=== PATIENT | female | born 1950 | race Caucasian/White ===

== ENCOUNTER 2016-12-18 18:42 | Emergency (ER) | payer MEDICARE, OTHER ==
[~2016-12-18] VITALS: Ht 167.6 cm; Wt 86.0 kg
[~2016-12-18 18:42] MED LIST: AZIT250T94 PO; BENZ100C70 PO; METF500T3; ZOCOR
[2016-12-18 18:47] VITALS: Ht 167.6 cm; Wt 86.0 kg
[2016-12-18] MEDS ORDERED: SOD CHLORIDE 0.9% 1,000 ML IV STA (20:02)
[2016-12-18] MEDS ORDERED: ONDANSETRON 4 MG INJ IV STA (20:02)
[2016-12-18] MEDS ORDERED: KETOROLAC 15 MG INJ IV STA (20:02)
[2016-12-18] MEDS ORDERED: BELLADONNA/PHENOBARBITAL TAB PO STA (20:02)
[2016-12-18 20:41] LABS: ADD UMIC YES; UR ASCORBIC ACID NEGATIVE (NEGATIVE); UR BACTERIA FEW /HPF (NONE SEEN); UR BILIRUBIN (Dip) NEGATIVE (NEGATIVE); UR BLOOD (Dip) 1+ mg/dL (NEGATIVE); UR CLARITY SLIGHTLY CLOUDY (CLEAR); UR COLOR YELLOW (YELLOW); UR GLUCOSE (Dip) 1+ mg/dL (NEGATIVE); UR KETONES (Dip) NEGATIVE (NEGATIVE); UR LEUKOCYTE ESTERASE (Dip) 3+ Leu/ul (NEGATIVE); UR MUCUS FEW /HPF (NONE SEEN); UR NITRITE (Dip) POSITIVE (NEGATIVE); UR RBC 6 /HPF (0-5); UR SPECIFIC GRAVITY (Dip) 1.018 (1.003-1.030); UR SQUAMOUS EPITHELIAL CELL FEW /HPF (FEW); UR TOTAL PROTEIN (Dip) NEGATIVE (NEGATIVE); UR UROBILINOGEN (Dip) NEGATIVE (NEGATIVE)
[2016-12-18] MEDS ORDERED: AMLO5TAB4 PO (20:54)
[2016-12-18] MEDS ORDERED: METF500T4 PO (20:54)
[2016-12-18] MEDS ORDERED: ASPI-664 PO (20:55)
--- NOTE | 2016-12-18 20:57 | ERD ---
ER Documentation Chief Complaint Chief Complaint right leg pain since 3 days ago, denies injury HPI 66-year-old woman here for abdominal pain, she was triaged his leg pain although denies pain in her leg and denies is here for leg pain. Her abdominal pain is epigastric and suprapubic, she has had dysuria 1 day, no fevers or chills, no blood per rectum or melena, no chest pain or shortness of breath. ROS All systems reviewed and are negative except as per history of present illness. Medications Home Meds Active Scripts Ondansetron Hcl* (Zofran*) 4 Mg Tablet, 4 MG PO Q8H Y for NAUSEA, #15 TAB Prov:EFREN NOGUERA MD 12/18/16 Cephalexin* (Keflex*) 500 Mg Capsule, 500 MG PO TID for 7 Days, CAP Prov:EFREN NOGUERA MD 12/18/16 Reported Medications Aspirin* (Aspirin* EC) 81 Mg Tablet.dr, 81 MG PO DAILY, TAB 12/18/16 Amlodipine Besylate* (Norvasc*) 5 Mg Tablet, 5 MG PO DAILY, TAB 12/18/16 Metformin Hcl* (Metformin Hcl*) 500 Mg Tablet, 500 MG PO WITH BREAKFAST DINNE, # 60 TAB 12/18/16 Discontinued Reported Medications Metformin* (Glucophage* XR) 500 Mg Tab.sr.24h 11/14/09 [Zocor] No Conflict Check 11/14/09 Discontinued Scripts Benzonatate* (Tessalon Perle*) 100 Mg Capsule, 100 MG PO TID, #30 CAP Prov:JOY MCADAMS MD 02/20/16 Azithromycin* (Zithromax*) 250 Mg Tablet, 250 MG PO DAILY for 4 Days, TAB Prov:JOY MCADAMS MD 02/20/16 Allergies Allergies: Coded Allergies: No Known Drug Allergy (Verified Allergy, Mild, 12/18/16) PMhx/Soc Hypertension, diabetes History of Surgery: Yes (CHOLECYSTECTOMY,HYSTRECTOMY) Anesthesia Reaction: No Hx Neurological Disorder: No Hx Respiratory Disorders: No Hx Cardiac Disorders: Yes (HIGH CHOLESTROL) Hx Psychiatric Problems: Yes Hx Miscellaneous Medical Probl: No Hx Alcohol Use: No Hx Substance Use: No Hx Tobacco Use: No Smoking Status: Never smoker FmHx Family History: No diabetes Physical Exam Vitals Vital Signs Date Time Temp Pulse Resp B/P Pulse Ox O2 Delivery O2 Flow Rate FiO2 12/18/16 22:34 74 18 135/82 100 Room Air 12/18/16 20:02 80 20 167/67 99 Room Air 12/18/16 18:47 98.3 83 20 180/78 96 Physical Exam GENERAL: Well-developed, well-nourished, well-hydrated, in no apparent distress , looks nontoxic in appearance HEENT: Moist mucous membranes, pink conjunctiva, no cervical spine tenderness or step-off deformities, no goiter, no jaundice or icterus, extraocular movements intact without pain. No submandibular induration, and no pharyngeal erythema NEURO: Alert and oriented 3, cranial nerves II through XII intact bilaterally, pupils equal round reactive to light, no focal deficits or facial asymmetry, sensation intact distally Strength 5/5 in upper and lower extremities bilaterally CARDIAC: Regular rate and rhythm, no murmurs rubs or gallops LUNGS: Clear bilaterally no wheezing crackles or stridor ABDOMEN: Soft nontender, no guarding, no rigidity, no rebound, no psoas sign no obturator sign. Normoactive bowel sounds SKIN: Warm and dry to touch, no abrasions, contusions, or hematomas, no lacerations, no ecchymosis, no target lesions, and without ulcers EXTREMITIES: No clubbing cyanosis or edema, calves are bilaterally symmetrical, no Homans sign, no popliteal cord sign. Distal pulses equal and bilateral PSYCH: Normal affect without agitation or irritability Result Diagram: 12/18/16204712/18/162047 Results 24 hrs Laboratory Tests Test 12/18/16 20:12 12/18/16 20:48 Urine Color YELLOW Urine Clarity SLIGHTLY CLOUDY Urine pH 6.0 Urine Specific [place] 1.018 Urine Ketones NEGATIVEmg/dL Urine Nitrite POSITIVEmg/dL Urine Bilirubin NEGATIVEmg/dL Urine Urobilinogen NEGATIVEmg/dL Urine Leukocyte Esterase 3+Lynda/ul Urine Microscopic RBC 6/HPF Urine Microscopic WBC 64/HPF Urine Squamous Epithelial Cells FEW/HPF Urine Bacteria FEW/HPF Urine Mucus FEW/HPF Urine Hemoglobin 1+mg/dL Urine Glucose 1+mg/dL Urine Total Protein NEGATIVEmg/dl White Blood Count 12.510^3/ul Red Blood Count 4.3610^6/ul Hemoglobin 11.8g/dl Hematocrit 37.6% Mean Corpuscular Volume 86.2fl Mean Corpuscular Hemoglobin 27.1pg Mean Corpuscular Hemoglobin Concent 31.4g/dl Red Cell Distribution Width 14.1% Platelet Count 69129^3/UL Mean Platelet Volume 10.9fl Neutrophils % 67.1% Lymphocytes % 23.1% Monocytes % 6.6% Eosinophils % 2.5% Basophils % 0.3% Nucleated Red Blood Cells % 0.0/100WBC Neutrophils # 8.410^3/ul Lymphocytes # 2.910^3/ul Monocytes # 0.810^3/ul Eosinophils # 0.310^3/ul Basophils # 0.010^3/ul Nucleated Red Blood Cells # 0.010^3/ul Sodium Level 143mmol/L Potassium Level 4.1mmol/L Chloride Level 104mmol/L Carbon Dioxide Level 29mmol/L Anion Gap 14 Blood Urea Nitrogen 18mg/dl Creatinine 0.67mg/dl Glucose Level 188mg/dl Calcium Level 9.4mg/dl Total Bilirubin 0.1mg/dl Direct Bilirubin 0.00mg/dl Indirect Bilirubin 0.1mg/dl Aspartate Amino Transf (AST/SGOT) 19IU/L Alanine Aminotransferase (ALT/SGPT) 31IU/L Alkaline Phosphatase 67IU/L Troponin I < 0.012ng/ml Total Protein 8.1g/dl Albumin 3.9g/dl Globulin 4.20g/dl Albumin/Globulin Ratio 0.92 Lipase 119U/L Current Medications Medications (Trade) Dose Ordered Sig/Titus Route PRN Reason Start Time Stop Time Status Last Admin Dose Admin Sodium Chloride (NS) 1,000 ml @ 1,000 mls/hr Q1H STAT IV 12/18/16 20:02 12/18/16 21:01 DC 12/18/16 21:14 Ondansetron HCl (Zofran Inj) 4 mg ONCE STAT IV 12/18/16 20:02 12/18/16 20:04 DC Miscellaneous Medication (Gi Cocktail (2)) 40 ml ONCE STAT PO 12/18/16 20:02 12/18/16 20:04 DC Belladonna/ Phenobarbital () 2 tab ONCE STAT PO 12/18/16 20:02 12/18/16 20:04 DC 12/18/16 21:14 Ketorolac Tromethamine 15 mg 15 mg ONCE STAT IV 12/18/16 20:02 12/18/16 20:04 DC 12/18/16 21:14 Ceftriaxone Sodium (Rocephin) 50 ml @ 100 mls/hr ONCE ONCE IVPB 12/18/16 21:30 12/18/16 21:59 DC 12/18/16 21:44 Procedures/MDM IV line was established patient was placed on monitoring analyst rhythm strip revealed a sinus rhythm at about 80 bpm with upright P and T waves. Patient was afebrile EKG performed, read by me: 82 bpm, normal sinus rhythm, normal axis, no acute ST segment changes, narrow QRS complex, with good R-wave progression in precordial leads. I ordered 1 L normal saline intravenously, Zofran 4 mg IV, GI cocktail 30 cc p.o., and Toradol 15 mg IV. CBC and electrolytes are normal, liver function tests were normal, troponin was negative. Urinalysis was consistent with early UTI I treated her here with ceftriaxone [address] scan of the abdomen and pelvis was performed, given the patient's symptoms. There was no acute inflammatory or infectious pathology noted, vascular structures were unremarkable. Please refer radiologist's dictation for full report. Differential diagnoses considered, included but not limited to acute coronary syndrome, pulmonary embolism, aortic dissection, abdominal aortic aneurysm, sepsis, stroke, meningitis, encephalitis, pneumonia, appendicitis, cholecystitis , bowel obstruction, pyelonephritis, nephrolithiasis, cystitis, as well as metabolic, hematologic, and electrolyte abnormalities. As well as abscess, cellulitis, fractures, and dislocations. Patient feels much better at this time, and vital signs are normal, symptoms have improved. I did give strict instructions to return to the ED if symptoms continue or worsen, patient will otherwise follow-up with primary care physician. Patient understood instructions and agreed to plan. Disclaimer: Inadvertent spelling and grammatical errors are likely due to EHR/ dictation software use and do not reflect on the overall quality of patient care. Also, please note that the electronic time recorded on this note does not necessarily reflect the actual time of the patient encounter. Departure Diagnosis: Primary Impression: Abdominal pain Abdominal location: epigastric Qualified Code: R10.13 - Epigastric pain Additional Impression: UTI (urinary tract infection) Urinary tract infection type: acute cystitis Hematuria presence: without hematuria Qualified Code: N30.00 - Acute cystitis without hematuria Condition: EFREN Casiano MD Dec 18, 2016 20:57
[2016-12-18 21:05] LABS: BASOPHILS % 0.3 % (0.0-2.0); EOSINOPHILS # 0.3 10^3/ul (0.0-0.5); EOSINOPHILS % 2.5 % (0.0-7.0); HEMATOCRIT 37.6 % (37.0-47.0); HEMOGLOBIN 11.8 g/dl (12.0-16.0); LYMPHOCYTES # 2.9 10^3/ul (0.8-2.9); LYMPHOCYTES % 23.1 % (15.0-51.0); MEAN CORPUSCULAR HEMOGLOBIN 27.1 pg (29.0-33.0); MEAN CORPUSCULAR HGB CONC 31.4 g/dl (32.0-37.0); MEAN CORPUSCULAR VOLUME 86.2 fl (82.0-101.0); MEAN PLATELET VOLUME 10.9 fl (7.4-10.4); MONOCYTE # 0.8 10^3/ul (0.3-0.9); MONOCYTES % 6.6 % (0.0-11.0); NEUTROPHIL # 8.4 10^3/ul (1.6-7.5); NEUTROPHILS % 67.1 % (39.0-77.0); PLATELET COUNT 287 10^3/UL (140-415); RED BLOOD COUNT 4.36 10^6/ul (4.20-5.40); RED CELL DISTRIBUTION WIDTH 14.1 % (11.5-14.5); WHITE BLOOD COUNT 12.5 10^3/ul (4.8-10.8)
[2016-12-18] MEDS: LIDOCAINE/MYLANTA 40 ML BTL PO STA ×2 (21:14→21:19)
[2016-12-18] MEDS ORDERED: ONDA4TAB8 PO (21:17)
[2016-12-18] MEDS ORDERED: CEPH-443 PO (21:17)
[2016-12-18 21:23] LABS: ALANINE AMINOTRANSFERASE 31 IU/L (13-69); ALBUMIN 3.9 g/dl (3.3-4.9); ALBUMIN/GLOBULIN RATIO 0.92; ALKALINE PHOSPHATASE 67 IU/L (42-121); ANION GAP 14 (8-16); ASPARTATE AMINO TRANSFERASE 19 IU/L (15-46); BILIRUBIN,INDIRECT 0.1 mg/dl (0-1.1); BILIRUBIN,TOTAL 0.1 mg/dl (0.2-1.3); BLOOD UREA NITROGEN 18 mg/dl (7-20); CALCIUM 9.4 mg/dl (8.4-10.2); CARBON DIOXIDE 29 mmol/L (21-31); CHLORIDE 104 mmol/L (97-110); CREATININE 0.67 mg/dl (0.44-1.00); GLUCOSE 188 mg/dl (70-220); POTASSIUM 4.1 mmol/L (3.5-5.1); SODIUM 143 mmol/L (135-144); TOTAL PROTEIN 8.1 g/dl (6.1-8.1)
[2016-12-18] MEDS ORDERED: CEFTRIAXONE 1 GM/50 ML (PMX) 50 ML IVPB ONE (21:30)
[2016-12-18 21:34] LABS: TROPONIN-I < 0.012 ng/ml (0.00-0.12)
--- NOTE | 2016-12-18 21:43 | RADRPT ---
PROCEDURE: CT ABDOMEN AND PELVIS WITHOUT CONTRAST. CLINICAL INDICATION: Abdominal pain TECHNIQUE: CT scan of the abdomen and pelvis without contrast was performed on a multidetector hig h-resolution CT scanner. The patient was scanned without intravenous contrast. Coronal and sagittal reformatted images were obtained from the axial source images. Images were reviewed on a high-resol [employer] PACS workstation. The total exam CTDI equals 18.3 mGy and the total exam DLP equals 993.4 mGy- cm. One or more of the following dose reduction techniques were used: Automated exposure control. Adjustment of the mA and/or kV according to patient size. Use of iterative reconstruction technique. COMPARISON: None FINDINGS: CT abdomen: Bilateral lower lobe atelectasis noted. Heart size is within normal limits. There is no significant pericardial effusion. Hepatic morphology is within limits. No gross contour deforming masses. Status post cholecystectomy. There is fatty infiltrative changes of the liver. The liver is enlarged. The spleen is within normal limits. Pancreas is within normal limits. Both adrenal glands are within normal limits. Both kidneys are in normal anatomic position. No evidence of obstruction or hydronephrosis. No gross renal/ureteric calculi. The visualized GI tract demonstrate normal caliber loops of small large bowel. No evidence of bowel obstruction. Stool and air filled large bowel is noted. The appendix is within normal limits. The unenhanced aorta demonstrates atherosclerotic calcifications. Several shoddy retroperitoneal lym ph nodes are identified. CT pelvis: The bladder is within normal limits. The rectosigmoid colon demonstrates mild diverticulosis. No sig nificant free fluid. No significant pelvic lymphadenopathy The uterus is not visualized. The visualized osseous structures demonstrates multilevel degenerative disease of the spine. IMPRESSION: 1. No evidence of acute intra-abdominal/pelvic inflammatory process. No evidence of bowel obstructio n. The appendix is within normal limits. 2. Hepatomegaly and fatty liver. Status post cholecystectomy. 3. Sigmoid colon diverticulosis without evidence of diverticulitis. 4. No free fluid or free air. No gross focal fluid collections. 5. Status post hysterectomy. 6. Mild atherosclerotic disease of the aorta. RPTAT: AAPP Jasony Lue, Physician Date Time Electronically viewed and signed by Sneha Hayes Physician on 12/18/2016 21:43 WHIT/
[2016-12-18 22:34] VITALS: BP 135/82; PULSE 74; RESP 18
== END 2016-12-18 22:50 | disposition home or self-care (01) ==
LOC: E/R 18:42
DX: N30.00 Acute cystitis without hematuria (principal); Z79.82 Long term (current) use of aspirin; Z79.84 Long term (current) use of oral hypoglycemic drugs
CPT/HCPCS: 74176; 80053; 81001; 83690; 84484; 85025; 87086; 93005; 96374; 96375; 99285; J0696; J1885; J2405; J7030

== ENCOUNTER 2017-11-05 09:36 | Emergency (ER) | END 2017-11-05 10:54 | disposition home or self-care (01) ==

== ENCOUNTER 2018-01-31 18:31 | Emergency (ER) | END 2018-01-31 22:14 | disposition home or self-care (01) ==

== ENCOUNTER 2018-05-17 16:28 | Emergency (ER) | payer OTHER ==
[~2018-05-17] VITALS: Ht 165.1 cm; Wt 86.0 kg
[~2018-05-17 16:28] MED LIST changes: +AMLO5TAB4 PO; +ASPI-817 PO; -AZIT250T94 PO; -BENZ100C70 PO; +CEPH-443 PO; +HC30CR25 TOP; +LEVO5TAB28 PO; +METF500T24 PO; -METF500T3; +ONDA4TAB8 PO; -ZOCOR
[2018-05-17 16:45] VITALS: Ht 165.1 cm; Wt 86.0 kg
== END 2018-05-17 20:30 | disposition left against medical advice (07) ==
LOC: FTE 16:28
DX: Z53.21 Procedure and treatment not carried out due to patient leaving prior to being seen by health care provider (principal)